=== PATIENT | male | born 1990 | race Hispanic/Latino ===

== ENCOUNTER → 2020-04-12 | Outpatient (CLI) | payer BC, SELFPAY | END | disposition home or self-care (01) | LOC: RAH 07:54 | PROVIDERS: ATTEND Physical Medicine & Rehabilitation | DX: M54.16 Radiculopathy, lumbar region (principal) | CPT/HCPCS: 72148 ==

== ENCOUNTER 2020-06-19 10:21 | Emergency (ER) | payer BC, OTHER, SELFPAY ==
[2020-06-19 11:23] LABS: APPEARANCE,URINE CLEAR (CLEAR); BILIRUBIN,URINE NEGATIVE (NEGATIVE); COLOR,URINE YELLOW (YELLOW); GLUCOSE, URINE (UA) NEGATIVE (NEGATIVE); KETONES,URINE NEGATIVE (NEGATIVE); LEUKOCYTE ESTERASE ,URINE NEGATIVE (NEGATIVE); NITRATE,URINE NEGATIVE (NEGATIVE); OCCULT BLOOD,URINE NEGATIVE (NEGATIVE); PH,URINE 5.5 (5.0-8.0); PROTEIN,URINE TRACE mg/dL (NEGATIVE); UROBILINOGEN,URINE 0.2 mg/dL (0.2-1.0)
[2020-06-19 11:54] LABS: BASOPHILS % (AUTO) 0.3 % (0.0-5.0); EOSINOPHILS % (AUTO) 0.6 % (0.0-8.0); HEMATOCRIT 43.4 % (42-54); LYMPHOCYTES % (AUTO) 10.8 % (21.0-51.0); MEAN CORPUSCULAR HEMOGLOBIN 29.5 pg (27.0-33.0); MEAN CORPUSCULAR HGB CONC 33.9 g/dL (32.0-36.0); MONOCYTES % (AUTO) 4.6 % (3.0-13.0); NEUTROPHILS % (AUTO) 83.1 % (40.0-77.0); PLATELET COUNT (AUTO) 350 K/uL (130-400); RED BLOOD CELL COUNT(AUTO) 4.99 MIL/uL (4.50-6.20); RED CELL DISTRIBUTION WIDTH 12.5 % (11.0-15.5); WHITE BLOOD COUNT (AUTO) 14.3 K/uL (4.8-10.8)
[2020-06-19 12:00] LABS: CREATININE 0.9 mg/dL (0.5-1.5); POTASSIUM 4.7 mmol/L (3.5-5.1)
[2020-06-19 12:05] LABS: BILIRUBIN,TOTAL 0.6 mg/dL (0.2-1.0)
[2020-06-19] MEDS ORDERED: KETOROLAC TROMETHAMINE 30MG/ML ONE (13:28)
[2020-06-19] MEDS ORDERED: 0.9% SODIUM CHLORIDE 1000 ML IV BAG IV ONE (13:30)
[2020-06-19] MEDS ORDERED: IOHEXOL-350 75 ML VIAL IV ONE (13:56)
== END 2020-06-19 15:20 | disposition home or self-care (01) ==
LOC: EDH 10:21
DX: S16.1XXA Strain of muscle, fascia and tendon at neck level, initial encounter (principal); S00.83XA Contusion of other part of head, initial encounter; R55 Syncope and collapse; K59.00 Constipation, unspecified; F32.9 Major depressive disorder, single episode, unspecified; F41.9 Anxiety disorder, unspecified; Z79.899 Other long term (current) drug therapy; Z98.890 Other specified postprocedural states; W18.39XA Other fall on same level, initial encounter; Y93.89 Activity, other specified; Y92.89 Other specified places as the place of occurrence of the external cause; Y99.8 Other external cause status
CPT/HCPCS: 36415; 70450; 71045; 72125; 74177; 80053; 81003; 82550; 83605; 84484; 85025; 93005; 96361; 96374; 99285; J1885; J7030; Q9967

== ENCOUNTER 2022-03-02 07:39 | Emergency (ER) | payer BC, OTHER ==
[~2022-03-02] VITALS: Ht 172.7 cm; Wt 86.2 kg
[2022-03-02] MEDS ORDERED: LACTATED RINGERS 1000ML 1,000 ML IV SCH (08:30)
[2022-03-02 08:31] LABS: BASOPHILS % (AUTO) 0.3 % (0.0-5.0); EOSINOPHILS % (AUTO) 1.3 % (0.0-8.0); HEMATOCRIT 45.8 % (42-54); LYMPHOCYTES % (AUTO) 19.6 % (21.0-51.0); MEAN CORPUSCULAR HEMOGLOBIN 29.5 pg (27.0-33.0); MEAN CORPUSCULAR HGB CONC 34.9 g/dL (32.0-36.0); MEAN CORPUSCULAR VOLUME 84.3 fL (79-99); NEUTROPHILS % (AUTO) 71.9 % (40.0-77.0); PLATELET COUNT (AUTO) 376 K/uL (130-400); RED BLOOD CELL COUNT(AUTO) 5.43 MIL/uL (4.50-6.20); RED CELL DISTRIBUTION WIDTH 12.2 % (11.0-15.5); WHITE BLOOD COUNT (AUTO) 15.2 K/uL (4.8-10.8)
[2022-03-02 08:43] LABS: ALBUMIN 3.9 g/dL (3.5-5.0); POTASSIUM 3.5 mmol/L (3.5-5.1); TOTAL PROTEIN, SERUM 8.1 g/dL (6.0-8.3)
[2022-03-02] MEDS ORDERED: OSEL75 PO (09:18)
[2022-03-02 09:22] VITALS: BP 118/76
[2022-03-02] MEDS ORDERED: OSELTAMIVIR PHOSPHATE 75 MG CAP ONE (09:26)
[2022-03-03] MEDS ORDERED: OSELTAMIVIR PHOSPHATE 75 MG CAP PO SCH (09:29)
== END 2022-03-02 09:40 | disposition home or self-care (01) ==
LOC: EDH 07:39
DX: J10.1 Influenza due to other identified influenza virus with other respiratory manifestations (principal); E86.0 Dehydration; F41.9 Anxiety disorder, unspecified; F32.A Depression, unspecified; Z20.822 Contact with and (suspected) exposure to COVID-19
CPT/HCPCS: 99284; 96360; 96361; 80053; 85025; 87804 ×2; 36415; 93005; J7120